=== PATIENT | female | born 1980 | race Caucasian/White ===

== ENCOUNTER 2024-05-25 12:04 | Emergency (ER) | payer OTHER, SELFPAY ==
[2024-05-25 12:11] VITALS: BP 125/75; PULSE 121; TEMP 36.8; O2SAT 98; BMI 23.0
[2024-05-25 12:37] LABS: HCG Qualitative Urine* NEGATIVE (NEGATIVE); Internal Control Within Normal Limits
[2024-05-25 12:38] LABS: Bilirubin Urine NEGATIVE (NEGATIVE); Blood Urine NEGATIVE (NEGATIVE); Clarity Urine CLEAR (CLEAR); Color Urine YELLOW (YELLOW); Glucose Urine UA NEGATIVE (NEGATIVE); Ketones Urine TRACE mg/dL (NEGATIVE); Leukocyte Esterase Urine NEGATIVE (NEGATIVE); Nitrite Urine NEGATIVE (NEGATIVE); Protein Urine NEGATIVE (NEG/TRACE); Specific Gravity Urine 1.015 (1.005-1.025); Urobilinogen Urine 0.2 EU/dL (0.2-1.0)
[2024-05-25 12:42] LABS: Urine Microscopic Indicated NO
[2024-05-25 12:56] VITALS: PULSE 85; O2SAT 98
--- NOTE | 2024-05-25 13:16 | ED_ITS ---
HPI - Female Genitourinary General Chief complaint: Urogenital-Female Stated complaint: STI CHECK Time Seen by Provider: 05/25/24 12:16 Source: patient Mode of arrival: walk-in Limitations: no limitations History of Present Illness HPI Narrative: The patient is coming to the ER requesting to be tested for STI after she has a concern that her boyfriend is cheating on her, she mentioned that she have no significant vaginal discharge but she did mention that she have some cramping on and off. She denies any nausea vomiting or any other concerning Related Data Previous Rx's ?Medication ?Instructions ?Recorded fluconazole 150 mg tablet 150 mg PO DAILY 1 dose #1 tab 05/25/24 metronidazole 500 mg tablet 500 mg PO BID 7 days #14 tabs 05/25/24 Allergies Allergy/AdvReac Type Severity Reaction Status Date / Time No Known Drug Allergies Allergy Verified 05/25/24 12:10 Review of Systems ROS Status of ROS 10 or more systems reviewed and unremark able except as noted in history and below PFSH PFSH Social History Little interest or pleasure in doing things: not at all Feeling down, depressed, or hopeless: not at all Exam Narrative Exam Narrative: Nurses notes and vital signs reviewed and patient is not hypoxic. General: Well-appearing and in no apparent distress. Skin: Warm, dry, no pallor noted. No rash. Head: Normocephalic, atraumatic. Neck: Supple, non-tender. Eye: Pupils are equal, round and EOMI. No scleral icterus. Ears, Nose, Mouth, and Throat: TM are clear, no nasal mucosal hypertrophy. Oral mucosa is moist, no posterior oropharynx erythema, uvula is mid-line Cardiovascular: Regular Rate and Rhythm without murmur, gallop or rub. Respiratory: No accessory muscle use or respiratory distress. Lungs are clear to auscultation, no wheezing, rales or rhonchi Chest Wall: no tenderness Back: No midline thoracic or lumbar vertebral tenderness. No CVA tenderness Musculoskeletal: normal ROM, no calf or popliteal tenderness, no lower extr emity edema/swelling GI: Abdomen is soft, non-distended. Normal bowel sounds. No masses appreciated. No tenderness to palpation. No rebound, guarding, or rigidity noted. Neurological: A&O x4. No cranial nerve dysfunction observed. No truncal ataxia. Moves all extremities. Sensation intact. Psychiatric: Cooperative and interactive. Normal mood and affect. Constitutional Vital Signs, click to edit/add: Last Vital Signs Temp 98.3 F 05/25/24 12:11 Pulse 85 05/25/24 12:56 Resp 16 05/25/24 12:11 BP 125/75 05/25/24 12:11 Pulse Ox 98 05/25/24 12:56 O2 Del Method Room Air 05/25/24 12:11 Course Vital Signs Vital signs: Vital Signs Temperature 98.3 F 05/25/24 12:11 Pulse Rate 121 H 05/25/24 12:11 Respiratory Rate 16 05/25/24 12:11 Blood Pressure 125/75 05/25/24 12:11 Pulse Oximetry 98 05/25/24 12:11 Oxygen Delivery Method Room Air 05/25/24 12:11 Temperature 98.3 F 05/25/24 12:11 Pulse Rate 85 05/25/24 12:56 Respiratory Rate 16 05/25/24 12:11 Blood Pressure 125/75 05/25/24 12:11 Pulse Oximetry 98 05/25/24 12:56 Oxygen Delivery Method Room Air 05/25/24 12:11 MDM - Female Genitourinary MDM Narrative Medical decision making narrative: The patient abdominal examination was benign and she does not have any symptoms except for the cramping The patient urine will be sent for chlamydia and gonorrhea testing her test as well as urine infection signs are negative Right now the patient presentation could be secondary to bacterial vaginosis Patient will be treated with Flagyl and awaiting of the results of the above- mentioned testing The patient is to follow up with primary care physician in next 2-3 days or to return to the emergency department should any of the signs or symptoms worsen or new symptoms develop. The patient agrees with the following Diagnosis and Treatment plan and the patient will be discharged home. Lab Data Labs: Lab Results 05/25/24 Range/Units 12:25 Urine Color Yellow (YELLOW) Urine Clarity Clear (CLEAR) Urine pH 6.0 (5.0-9.0) Ur Specific [place] 1.015 (1.005-1.025) Urine Protein Negative (NEG/TRACE) mg/dL Urine Glucose (UA) Negative (NEGATIVE) mg/dL Urine Ketones Trace A (NEGATIVE) mg/dL Urine Occult Blood Negative (NEGATIVE) Urine Nitrite Negative (NEGATIVE) Urine Bilirubin Negative (NEGATIVE) Urine Urobilinogen 0.2 (0.2-1.0) EU/dL Ur Leukocyte Esterase Negative (NEGATIVE) Urine HCG, Qual Negative (NEGATIVE) Discharge Plan Discharge Chief Complaint: Urogenital-Female Clinical Impression: Bacterial vaginosis, Concern about STI in female without diagnosis Patient Disposition: Home, Self-Care Time of Disposition Decision: 12:55 Condition: Good Prescriptions / Home Meds: New metronidazole 500 mg tablet 500 mg PO BID 7 Days Qty: 14 0RF fluconazole 150 mg tablet 150 mg PO DAILY Qty: 1 0RF Rx Instructions: administer on day 1 of therapy Print Language: Micronesian Instructions: Bacterial Vaginosis (ED) Referrals: Physician,Non-Staff, [Primary Care Provider] - 1 week
[2024-05-26 21:07] LABS: Neisseria gonorrhoeae, NAA Negative (Negative)
== END 2024-05-25 13:15 | disposition home or self-care (01) ==
PROVIDERS: Emergency Provider Emergency Medicine
DX: N76.0 Acute vaginitis (principal); Z20.2 Contact with and (suspected) exposure to infections with a predominantly sexual mode of transmission
CPT/HCPCS: 81003; 84703; 87491; 87591; 99283